=== PATIENT | male | born 1990 | race Caucasian/White ===

== ENCOUNTER → 2016-06-21 03:05 | Emergency (ER) | payer BC, OTHER ==
[~2016-06-21 03:05] MED LIST: BACITRACIN3.5 G1 TOP; KEFLEX500 M2 PO; NAPROSYN500 MG PO; NO MEDICATIONS; ROBITUSSIN A-C S5 ML PO; TAMIFLU75 M1 PO; ULTRAM PO; VOLTAREN75 MG PO
== END | disposition expired ==
LOC: CED 03:05
DX: I46.9 Cardiac arrest, cause unspecified (principal); Z87.442 Personal history of urinary calculi
CPT/HCPCS: 92950; 99285; J0171